=== PATIENT | male | born 1945 | race Caucasian/White ===

== ENCOUNTER → 2024-09-11 | Day surgery (SDC) | payer MEDICARE ==
[2024-09-05 10:08] LABS: BASOPHILS # (AUTO) 0.1 (0.0-0.1); BASOPHILS % 0.8 % (0.0-1.0); EOSINOPHILS # (AUTO) 0.3 (0.0-0.4); EOSINOPHILS % 4.7 % (0.0-6.0); HEMATOCRIT 49.2 % (38.2-49.6); HEMOGLOBIN 16.9 g/dL (14.0-18.0); LYMPHOCYTES # (AUTO) 2.1 (1.0-3.2); LYMPHOCYTES % 30.3 % (18.0-39.1); MEAN CORPUSCULAR HEMOGLOBIN 31.7 pg (28-32); MEAN CORPUSCULAR HGB CONC 34.3 g/dL (31-35); MEAN CORPUSCULAR VOLUME 92.3 fL (81-99); MONOCYTES # (AUTO) 0.6 (0.2-0.8); MONOCYTES % 8.3 % (4.4-11.3); NEUTROPHILS # (AUTO) 3.9 (2.1-6.9); NEUTROPHILS % 55.6 % (38.7-80.0); PLATELET COUNT 177 x10e3/uL (140-360); RED BLOOD COUNT 5.33 x10e6/uL (4.3-5.7); WHITE BLOOD COUNT 7.07 x10e3/uL (4.8-10.8)
[~2024-09-11] MED LIST: AMLODIPINE BESY10 MG PO; ANDROGEL75 G1; CENTRUM SILVER1 EAC9; DYMISTA NASAL S23 GM INH; FLONASE ALLERG9.9 ML INH; LIDOCAINE HCL 2% LOCAL INJ 5 ML SDV VIAL INJ ONE; PROPOFOL IV EMULSION 10 MG/ML 20 ML VIAL ONE; TESTOSTERONE SHOT; VITAMIN A3000 MC2; VITAMIN C1000 MG PO
[2024-09-11] MEDS: LACTATED RINGER'S 1,000 ML ONE (05:41)
[2024-09-11 08:29] VITALS: TEMP 97.6
[2024-09-11 08:50] VITALS: BP 146/79; PULSE 60; RESP 18; O2SAT 98
== END | disposition home or self-care (01) ==
LOC: OR 05:33
PROVIDERS: ATTEND Internal Medicine Gastroenterology
DX: R19.4 Change in bowel habit (principal); Z85.048 Personal history of other malignant neoplasm of rectum, rectosigmoid junction, and anus; D12.8 Benign neoplasm of rectum; K63.5 Polyp of colon; K62.5 Hemorrhage of anus and rectum; I10 Essential (primary) hypertension; R01.1 Cardiac murmur, unspecified; R05.3 Chronic cough; F17.210 Nicotine dependence, cigarettes, uncomplicated; Z01.810 Encounter for preprocedural cardiovascular examination; Z01.812 Encounter for preprocedural laboratory examination; Z68.23 Body mass index [BMI] 23.0-23.9, adult; Z79.899 Other long term (current) drug therapy; Z86.19 Personal history of other infectious and parasitic diseases; Z92.21 Personal history of antineoplastic chemotherapy; Z92.3 Personal history of irradiation
CPT/HCPCS: 36415; 45385; 85025; 88305; 93005; J2003; J2704; J7121